=== PATIENT | male | born 1995 | race Caucasian/White ===

== ENCOUNTER 2017-04-10 01:53 | Emergency (ER) | payer SELFPAY ==
[~2017-04-10] VITALS: Ht 182.9 cm; Wt 68.0 kg
--- NOTE | ~2017-04-10 | CR127 ---
[facility]. [facility] A Service of [facility] & [facility] RADIOLOGY TEXT RESULTS PATIENT: ANA LUISA ROMAN LOCATION: SED : [birth year] UNIT #: [id number] AGE: [address]: Ayo Nevarez MD SEX: M ORDER DR: [id number] [id number] E MR#: [id number] Acc #: [id number] NAME: ANA LUISA ROMAN : 1995 SEX: M STUDY DATE/TIME: 04/10/2017 2:16 UNIT: SED ROOM: STUDY DESCRIPTION: CR Foot Complete Min 3 View Rt Attending Physician: Ayo Nevarez M.D. Ordering Physician: Ayo eNvarez M.D. Primary Care Physician: Primary Care Physician No MEDICAL IMAGING REPORT This report is preliminary unless electronic signature is present. EXAM Right foot series INDICATION Right foot pain and swelling tonight. PROCEDURE Three views of the right foot. COMPARISON None. FINDINGS No acute fracture. No dislocation. IMPRESSION No acute findings. Dictated by... Theo Cruz M.D. THIS IS AN ELECTRONICALLY VERIFIED REPORT Theo Cruz M.D. at 04/14/2017 8:30 AM ALIA/adela TD: 04/10/2017 07:27 JOB #: [id number] MEDICAL IMAGING REPORT Page 1 of 1
[2017-04-10] MEDS ORDERED: NO MEDICATIONS (02:11)
== END 2017-04-10 03:16 | disposition home or self-care (01) ==
LOC: SED 01:53
DX: S90.31XA Contusion of right foot, initial encounter (principal); F17.200 Nicotine dependence, unspecified, uncomplicated; W22.8XXA Striking against or struck by other objects, initial encounter; Y92.89 Other specified places as the place of occurrence of the external cause
CPT/HCPCS: 29540; 73630; 99283